=== PATIENT | male | born 1975 | race Caucasian/White ===

== ENCOUNTER 2016-06-27 22:51 | Observation (INO) | payer OTHER ==
[~2016-06-27] VITALS: Ht 167.6 cm; Wt 108.0 kg
[2016-06-27] MEDS ORDERED: IV FLUIDS COMPLETED PRN (23:45)
[2016-06-27] MEDS ORDERED: CEFOXITIN SOD 2 GM VIAL IV STA (23:49)
--- NOTE | 2016-06-27 23:49 | History and Physical ---
History & Physical Date & Time of Service: Jun 27, 2016 at 23:39 Chief Complaint: Abd Pain, Appendicitis -Physician Referred Primary Care Physician: No Doctor, Assigned History of Present Illness Source: patient pt is a 41 year old male who presents to ER with 1 day history LLQ pain, some nausea, no vomiting, no fever, no diarrhea, pt went to other hospital and had CT scan done which was reported- acute appendicitis, pt came to [facility] for appendectomy. Social History Smoking Status: Never Smoker Smokeless Tobacco Use: No Alcohol Use: occasionally Drug Use: none Allergies Coded Allergies: No Known Allergies (Unverified , 06/27/16) Review of Systems Constitutional: No chills, No fatigue, No fever, No problem reported, No sweats , No weakness, No weight loss Eyes: No diplopia, No discharge, No eye pain, No problem reported, No redness, No worsening of vision ENT: No dental problems, No hearing loss, No nasal symptoms, No problem reported, No sore throat, No tinnitus, No trouble swallowing, No unusual epistaxis Respiratory: No cough, No dyspnea at rest, No dyspnea on exertion, No hemoptysis, No problem reported, No shortness of breath, No sputum, No wheezing Cardiovascular: No PND, No chest pain, No claudication, No edema, No orthopnea , No palpitations, No problem reported Abdomen: + nausea, + pain (LLQ pain) Musculoskeletal: No calf pain, No joint pain, No muscle pain, No problem reported, No swelling Genitourinary - Male: No dysuria, No hematuria, No impotence, No lesions, No penile discharge, No problem reported, No urinary frequency, No urinary hesitancy, No urinary incontinence, No urinary retention, No urinary urgency Neurologic: No balance problems, No memory loss, No numbness/tingling, No paralysis, No problem reported, No vertigo, No weakness Psychiatric: No anhedonism, No anxiety, No depression symptoms, No insomnia, No problem reported, No substance abuse Endocrine: No excessive thirst, No excessive urination, No fatigue, No problem reported Hematologic / Lymphatic: No abnormal bleeding/bruising, No clotting problems, No night sweats, No problem reported, No swollen lymph nodes Integumentary: No bleeding, No color change, No itch, No new/changing skin lesions, No problem reported, No rash Allergic / Immunologic: No environmental allergies, No food allergies, No frequent infections, No hives, No pet sensitivities, No poor healing, No problem reported, No prolonged convalescence, No seasonal allergies Physical Exam Vital Signs Date Time Temp Pulse Resp B/P Pulse Ox O2 Delivery O2 Flow Rate FiO2 06/27/16 22:58 36.9 81 18 96 Room Air General Appearance: WD/WN Head: normocephalic Eyes: normal inspection ENT: normal ENT inspection Neck: supple, no adenopathy Respiratory/Chest: chest non-tender, lungs clear Cardiovascular: regular rate, rhythm, no edema, no gallop, no JVD Abdomen/GI: normal bowel sounds, soft, no organomegaly, no pulsatile mass, + tenderness (tenderness at LLQ, with rebound pain,) Extremities/Musculoskelatal: normal inspection, no calf tenderness, normal capillary refill 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 pre-op labs, CBC, CMP, ASA Classification: ASA Class I Level of Care Med/Surg VTE Prophylaxis VTE Risk Assessment Done? Y/N: Yes Risk Level: Low Given or contraindicated: SCD's
[2016-06-28] VITALS (7 sets, daily range): BP systolic 94–123; BP diastolic 58–79; PULSE 65–81; TEMP 36.2–36.6; O2SAT 93–95; Ht 167.6 cm; Wt 108.0 kg
[2016-06-28 00:03] LABS: BASO % 0.3 %; BASO ABS # 0.03 K/uL (0-0.2); COMPLETE YES; EOS % 0.5 %; IG% 0.1 %; LYMPH % 23.4 %; MEAN CELL VOLUME 83.5 fL (80-100); MEAN CORPUSCULAR HEMOGLOBIN 29.1 pg (25-34); MEAN CORPUSCULAR HGB CONC 34.9 g/dl (32-36); MONO % 9.8 %; NEUT % 65.9 %; PLATELET COUNT 268 K/uL (130-400); RED BLOOD COUNT 5.15 M/uL (4.7-6.1); WHITE BLOOD COUNT 11.55 K/uL (4.8-10.8)
[2016-06-28] MEDS ORDERED: LIDOCAINE HCL 1% 20 ML VIAL ONE (00:13)
[2016-06-28] MEDS ORDERED: BUPIVACAINE 0.5 % 5 MG/1 ML MPF 30ML VIAL ONE (00:13)
[2016-06-28] MEDS ORDERED: BACITRACIN OINT 15 GM TUBE ONE (00:14)
[2016-06-28 00:15] LABS: BUN/CREATININE RATIO 11.4 (10-20); CALCIUM 9.5 mg/dl (8.5-10.1); CREATININE 0.97 mg/dl (0.60-1.40); POTASSIUM 3.9 mmol/L (3.5-5.1)
[2016-06-28] MEDS ORDERED: MIDAZOLAM HCL 1 MG/ML 2ML VIAL ONE (00:26)
[2016-06-28] MEDS ORDERED: FENTANYL CITRATE INJ 50 MCG/1 ML 2 ML VIAL ONE ×2 (00:26→01:54)
[2016-06-28] MEDS ORDERED: PROPOFOL IV EMULSION 10 MG/ML 20 ML VIAL IV ONE (00:27)
[2016-06-28] MEDS ORDERED: ROCURONIUM BROMID 50MG/5ML SYR ONE (00:27)
[2016-06-28] MEDS ORDERED: ONDANSETRON INJ 2 MG/ML 2 ML VIAL ONE (00:27)
[2016-06-28] MEDS ORDERED: GLYCOPYRROLATE INJ 0.2 MG/ML VIAL ONE (00:27)
[2016-06-28] MEDS ORDERED: NEOSTIGMINE METHYLSULFATE 5 MG/5 ML SYR ONE (00:27)
[2016-06-28] MEDS ORDERED: LIDOCAINE HCL 2% 2 ML VIAL (20MG/ML) ONE (00:31)
[2016-06-28] MEDS ORDERED: EpHEDrine SULFATE INJ 50 MG/ML AMP IV PRN (00:45)
[2016-06-28] MEDS ORDERED: LABETALOL HCL IV 5 MG/ML 20ML IV PRN (00:45)
[2016-06-28] MEDS ORDERED: FENTANYL CITRATE INJ 50 MCG/1 ML 2 ML VIAL IV PRN (00:45)
[2016-06-28] MEDS ORDERED: ONDANSETRON INJ 2 MG/ML 2 ML VIAL IV PRN ×2 (00:45→02:45)
[2016-06-28] MEDS ORDERED: ATROPINE SULFATE 0.1 MG/ML 5ML SYR IV PRN (00:45)
[2016-06-28] MEDS ORDERED: MEPERIDINE HCL 25 MG/ML CARP IV PRN (00:45)
[2016-06-28] MEDS ORDERED: HYDROmorphone INJ 1 MG/ML SYR IV PRN ×2 (00:45)
--- NOTE | 2016-06-28 02:35 | [facility] Post Operative Brief Note ---
Immediate Operative Summary Operative Date Jun 28, 2016. Pre-Operative Diagnosis Acute Appendicitis Post-Operative Diagnosis Acute Appendicitis Procedure(s) Performed Laparoscopic Appendectomy Surgeon Dr. Stoddard Manager Apple Surgeon(s) none Estimated Blood Loss 10 cc Findings acute appendicitis located at LLQ Specimens A: Appendix Drains none Anesthesia General Complication(s) None Disposition Recovery Room / PACU
--- NOTE | 2016-06-28 02:44 | Anesthesiology Progress Note ---
Anesthesia Post Op Note Date & Time Jun 28, 2016 at 02:43 Vital Signs Pain Intensity: 0 Vital Signs Past 12 Hours Date Time Temp Pulse Resp B/P Pulse Ox O2 Delivery O2 Flow Rate FiO2 06/28/16 02:40 36.6 70 16 122/75 100 Nasal Cannula 2 06/28/16 02:30 59 16 123/69 100 Mask 2 06/28/16 02:20 60 16 115/68 100 Mask 2 06/28/16 02:10 58 18 122/74 100 Mask 5 06/28/16 02:06 36.9 58 18 130/81 100 Mask 5 06/28/16 00:25 36.9 77 18 148/77 96 06/28/16 00:23 77 18 148/77 96 Room Air 06/27/16 22:58 36.9 81 18 96 Room Air Notes Mental Status: alert / awake / arousable, participated in evaluation Pt Amnestic to Procedure: Yes Nausea / Vomiting: adequately controlled Pain: adequately controlled Airway Patency, RR, SpO2: stable & adequate BP & HR: stable & adequate Hydration State: stable & adequate Anesthetic Complications: no major complications apparent
[2016-06-28] MEDS ORDERED: ACETAMINOPHEN 325 MG TAB PO PRN ×2 (02:45)
[2016-06-28] MEDS ORDERED: OXYCODONE/ACETAMINOPHEN 5-325 TAB PO PRN ×2 (02:45)
[2016-06-28] MEDS ORDERED: HYDROmorphone INJ 2 MG/ML SYR/VIAL IV PRN (02:45)
[2016-06-28] MEDS ORDERED: D5W AND 1/2NSS + 20MEQ KCL 1,000 ML IV SCH (03:30)
[2016-06-28] MEDS ORDERED: INFLUENZA ADMINISTRATION CHARGE ONE (08:00)
[2016-06-28] MEDS ORDERED: INFLUENZA VIRUS QUAD VACCINE 0.5 ML SYR IM. ONE (08:00)
[2016-06-28] MEDS ORDERED: CEFOXITIN IV 2,000 MG in DEXTROSE 5% 50ML 50 ML IV SCH (08:00)
--- NOTE | 2016-06-28 08:45 | Surgery Progress Note ---
Surgery Progress Note Date of Service Jun 28, 2016. Subjective Post OP Day: + feeling well S/P laparoscopic appendectomy pt is doing fine, no C/O, pt wants to go home today, Objective Vital Signs: Date Time Temp Pulse Resp B/P Pulse Ox O2 Delivery O2 Flow Rate FiO2 06/28/16 08:10 Room Air 06/28/16 07:43 36.6 75 16 110/71 93 Room Air 06/28/16 05:50 36.5 76 14 94/58 95 Room Air 06/28/16 04:51 36.6 81 14 95/60 95 Room Air 06/28/16 03:50 36.5 73 16 98/62 93 Room Air 06/28/16 03:23 36.6 67 16 107/68 94 Room Air 06/28/16 02:50 36.2 65 17 123/79 95 Nasal Cannula 2.0 06/28/16 02:50 95 Nasal Cannula 2.0 06/28/16 02:50 36.2 65 18 123/79 95 Nasal Cannula 2.0 06/28/16 02:40 36.6 70 16 122/75 100 Nasal Cannula 2 06/28/16 02:30 59 16 123/69 100 Mask 2 06/28/16 02:20 60 16 115/68 100 Mask 2 06/28/16 02:10 58 18 122/74 100 Mask 5 06/28/16 02:06 36.9 58 18 130/81 100 Mask 5 06/28/16 00:25 36.9 77 18 148/77 96 06/28/16 00:23 77 18 148/77 96 Room Air 06/27/16 22:58 36.9 81 18 96 Room Air General Appearance: WD/WN Head: normocephalic Neck: supple, no JVD Respiratory/Chest: chest non-tender, lungs clear Cardiovascular: regular rate, rhythm, no edema, no JVD Abdomen: normal bowel sounds, non tender, non distended, soft Incision(s): clean, dry, intact Extremities: normal range of motion, non-tender, normal inspection Laboratory Results: Results Past 24 Hours Test 06/27/16 23:16 Range/Units White Blood Count 11.55 4.8-10.8 K/uL Red Blood Count 5.15 4.7-6.1 M/uL Hemoglobin 15.0 14.0-18.0 g/dL Hematocrit 43.0 42-52 % Mean Corpuscular Volume 83.5 80-100 fL Mean Corpuscular Hemoglobin 29.1 25-34 pg Mean Corpuscular Hemoglobin Concent 34.9 32-36 g/dl Platelet Count 268 130-400 K/uL Mean Platelet Volume 9.0 7.4-10.4 fL Neutrophils (%) (Auto) 65.9 % Lymphocytes (%) (Auto) 23.4 % Monocytes (%) (Auto) 9.8 % Eosinophils (%) (Auto) 0.5 % Basophils (%) (Auto) 0.3 % Neutrophils # (Auto) 7.62 1.4-6.5 K/uL Lymphocytes # (Auto) 2.70 1.2-3.4 K/uL Monocytes # (Auto) 1.13 0.11-0.59 K/uL Eosinophils # (Auto) 0.06 0-0.5 K/uL Basophils # (Auto) 0.03 0-0.2 K/uL RDW Standard Deviation 40.3 36.4-46.3 fL RDW Coefficient of Variation 13.3 11.5-14.5 % Immature Granulocyte % (Auto) 0.1 % Immature Granulocyte # (Auto) 0.01 0.00-0.02 K/uL Sodium Level 137 136-145 mmol/L Potassium Level 3.9 3.5-5.1 mmol/L Chloride Level 100 98-107 mmol/L Carbon Dioxide Level 32 21-32 mmol/L Anion Gap 5.0 3-11 mmol/L Blood Urea Nitrogen 11 7-18 mg/dl Creatinine 0.97 0.60-1.40 mg/dl Est Creatinine Clear Calc Drug Dose 114.3 ml/min Estimated GFR () 111.1 Estimated GFR (Non- 95.9 BUN/Creatinine Ratio 11.4 10-20 Random Glucose 106 70-99 mg/dl Calcium Level 9.5 8.5-10.1 mg/dl Total Bilirubin 1.1 0.2-1 mg/dl Aspartate Amino Transf (AST/SGOT) 12 15-37 U/L Alanine Aminotransferase (ALT/SGPT) 20 12-78 U/L Alkaline Phosphatase 93 45-117 U/L Total Protein 8.1 6.4-8.2 gm/dl Albumin 4.1 3.4-5.0 gm/dl Globulin 4.0 2.5-4.0 gm/dl Albumin/Globulin Ratio 1.0 0.9-2 Assessment & Plan IMP : S/P laparoscopic appendectomy pt is doing fine, D/C home today, F/U 1 week, regular diet
[2016-06-28] MEDS ORDERED: OXYC-57 PO (08:46)
--- NOTE | 2016-06-28 08:49 | Discharge Instructions ---
Discharge Instructions Date of Service Jun 28, 2016. Admission Reason for Admission: Acute Appendicitis Discharge Discharge Diagnosis / Problem: S/P laparoscopic appendectomy Discharge Goals Goal(s): Decrease discomfort, Improve function Activity Recommendations Activity Limitations: per Instructions/Follow-up section Lifting Limitations: no more than 25 pounds Exercise/Sports Limitations: gradually increase as tolerated May Resume Sexual Activity: when tolerated Shower/Bathe: may shower/bathe in 3 days Driving or Machine Use: resume 3 days after discharge . Instructions / Follow-Up Instructions / Follow-Up keep the dressing for 4 days, he can take a shower on 07/02/2016, no driving while taking pain medicine, follow up 1 week, . Current Hospital Diet Patient's current hospital diet: Clear Liquid Diet Discharge Diet Recommended Diet: Regular Diet Procedures Procedures Performed: Laparoscopic Appendectomy Pending Studies Studies pending at discharge: no Medical Emergencies . Who to Call and When: Medical Emergencies: If at any time you feel your situation is an emergency, please call 911 immediately. . Non-Emergent Contact Non-Emergency issues call your: Surgeon Call Non-Emergent contact if: you have a fever, temperature is above 100.5, your pain is not controlled, your pain is worsening, wound has increased drainage, wound has increased redness . "Provider Documentation" section prepared by Jefe Stoddard. . VTE Core Measure Inpt VTE Proph given/why not?: SCD's [place] Drug Monitoring Program Search Results: no issues identified
--- NOTE | 2016-06-28 09:24 | OPERATIVE REPORT ---
DATE OF OPERATION: 06/28/2016 PREOPERATIVE DIAGNOSIS: Acute appendicitis. POSTOPERATIVE DIAGNOSIS: Same. PROCEDURE: Laparoscopic appendectomy. SURGEON: Dr. Jefe Stoddard. ANESTHESIA: General. ESTIMATED BLOOD LOSS: About 10 mL. FINDINGS: Acute appendicitis. Appendix located in left lower quadrant. COMPLICATIONS: None. INDICATIONS FOR THE PROCEDURE: This is a 41-year-old gentleman who presented left side lower quadrant pain for 1 day history and with some nausea. The patient was diagnosed with acute appendicitis by CT scan. The patient required to do laparoscopic appendectomy, possible open. I did talk to the patient about the benefit and risk alternate procedure. I indicated the risks may include but not limited such as bleeding, infection, abscess, injury to bowel, incisional hernia. The patient understands. He signed informed consent and I answered all questions. DETAILS OF PROCEDURE: We brought the patient to the OR, put the patient in the supine position. The patient received SCD on bilateral legs to prevent DVT. Also, the patient received 2 gram cefoxitin IV for prophylactic antibiotic. The patient received Angeles catheter inserted after the anesthesiology and the patient received general anesthesia without difficulty. The abdomen was prepped and draped in routine sterile fashion. After time out, I injected the local anesthesia by using 1% lidocaine mixed with 0.25% Marcaine just above umbilical, opened fascia and opened peritoneum under direct vision. I put a Noel trocar in, connected to CO2 to create pneumoperitoneum. Flow rate is 6 liter per minute. Pressure not more than 14 mmHg. Once we get a nice pneumoperitoneum, we put a 10 mm camera in looked around the abdomen showing normal findings on the small bowel, large bowel; however, there was acute appendicitis located in left lower quadrant and no perforation. The appendix showing inflammations swollen edema, no free fluid on the pelvic area. Once I confirmed diagnosis I put another two 5 mm trocar on the right lower quadrant and then we put grasper in to hold the appendix, used harmonic to take down appendiceal, we checked no active bleeding. Then I passed a 40 mm Endo-DAVID staple transection the appendix on the base of the appendix, rechecked no active bleeding, no leak. Then I removed the appendix through the catch bag. Then we reinserted Noel trocar in creating pneumoperitoneum again to look around the abdomen, no active bleeding, no leak on the staple line, then we removed all trocars under direct vision. No active bleeding. Pneumoperitoneum was released. Then I using #1 Vicryl, closed the umbilical incision, fascial layer [id number] x2, closed subcutaneous layer by using 2-0 Vicryl, closed skin by using 4-0 Monocryl and then we closed another 5 mm trocar site skin only by using 4-0 Monocryl. Then we put the dressing on. The patient tolerated the procedure well. All the instrument, needle and sponge count correct x2 at the end of case. The patient transferred to recovery room in stable condition. The specimen sent to pathology. After the procedure, I did talk to the patient's family member about the OR finding and procedure we did, they understand. I attest to the content of the Intraoperative Record and any orders documented therein. Any exceptions are noted below. CLAUDIO
--- NOTE | 2016-06-28 22:23 | DISCHARGE SUMMARY ---
ADMITTING DIAGNOSIS: Acute appendicitis. DISCHARGE DIAGNOSIS: Same. OPERATION: Laparoscopic appendectomy. SURGEON: Dr. Jefe Stoddard. DETAILS OF DISCHARGE SUMMARY: This is a 41-year-old gentleman who came from another hospital with 1 day history of left-sided lower abdominal pain. The patient had a CT scan done at the outside hospital showing the patient had acute appendicitis. Appendix located in the left lower quadrant. The patient came to [facility] for further diagnosis and treatment, and once I reviewed all the patient history and lab and CT scan, decided to take the patient to the OR. In the OR, we found the patient had acute appendicitis located in the left lower quadrant. We did laparoscopic appendectomy. The patient tolerated the procedure well. After the procedure, the patient transported to the recovery room and later on transported to surgical floor. The patient doing fine. He walked around and he tolerated a clear diet. No nausea, no vomiting. PHYSICAL EXAMINATION: VITAL SIGNS: Temperature is 36.6, heart rate 75, respiratory rate is 16, blood pressure is 110/71, O2 saturation is 93% on room air. GENERAL: The patient is alert, awake, oriented x3. HEENT: With normal limitation. NEUROLOGIC: Intact. NECK: No JVD. CHEST: Bilateral lung sounds clear. HEART: Normal S1, S2. No murmur. ABDOMEN: Soft. Slight tenderness on the incision site. No distention. All dressings intact. EXTREMITIES: No edema. PLAN: The patient wanted to go home today. I gave the patient the postop care instruction. We will follow up the patient in 1 week. The patient understands.
== END 2016-06-28 11:06 | disposition home or self-care (01) ==
LOC: ENRESERVTM → ENRESERVDT → C.EDB 22:54 → C.3E 23:54
PROVIDERS: ADMIT Surgery; ATTEND Surgery
DX: K35.80 Unspecified acute appendicitis (principal)